=== PATIENT | female | born 1935 ===

== ENCOUNTER → 2017-08-07 | Outpatient (CLI) | payer MEDICARE ==
[2017-08-07 13:21] VITALS: BP 137/83; PULSE 77; RESP 16; TEMP 98.1; O2SAT 96
[2017-08-07 14:49] VITALS: BP 154/71; PULSE 64; RESP 16; TEMP 98.7; O2SAT 95
--- NOTE | 2017-08-07 16:04 | RADRPT ---
EXAM DATE: 08/07/2017 3:20 PM EDT AGE/SEX: 81 years / Female INDICATIONS: Left thyroid nodule CLINICAL DATA: This is the patient's initial encounter. Patient reports that signs and symptoms have been present for 1 day and indicates a pain score of 0/10. MEDICAL/SURGICAL HISTORY: . Hyperlipidemia. Hypertension. Gout. Hernia. Goiter. . Gallbladder stone removal. Ankle repair. Thyroid cyst. COMPARISON: No prior exams available for comparison. ORGAN: Left thyroid. SPECIMEN(S): Three fine needle aspirate(s) submitted for pathologic evaluation. DEVICE(S): 22 gauge needle Post procedure scanning reveals no hematoma or other complication. The possibility does exist that the tissue obtained will be non-diagnostic. If the sample is non-diag nostic, a repeat biopsy or surgical biopsy may need to be performed. TECHNIQUE: 1. Ultrasound guidance for needle biopsy. 2. Needle biopsy. 3. 4. . . The risks, benefits and alternatives to the procedure were explained and verbal and written consent w as obtained. The site was prepped in sterile fashion. Full sterile technique was used, including ca p, mask, sterile gloves and gown and a large sterile sheet. Hand hygiene and 2% chlorhexidine and/or betadine/alcohol prep was utilized per protocol for cutaneous antisepsis. The skin and subcutaneous tissues were infiltrated with local anesthetic solution. Sterile gel and sterile probe cover were u tilized for ultrasound guidance. With the patient on the ultrasound table, images were obtained. A needle was advanced into the identified target and the number of specimens as above obtained and prescott bmitted for pathologic evaluation. The patient tolerated the procedure well and left the ultrasound suite in stable condition. FINDINGS: Under direct ultrasound guidance 3 passes were obtained and submitted for pathologic evaluation. The patient tolerated the procedure well and left the ultrasound suite in stable condition. There was no hematoma. CONCLUSION: 1. Uncomplicated biopsy of dominant nodules in what would appear to be thyroid goiter. Electronically signed by: Luis Leon MD 08/07/2017 4:03 PM EDT
== END ==
LOC: HRAD 12:43
PROVIDERS: ATTEND Family Medicine
DX: E04.1 Nontoxic single thyroid nodule (principal)
CPT/HCPCS: 10022; 76942; 88172; 88173